=== PATIENT | male | born 1940 | race Caucasian/White ===

== ENCOUNTER 2024-12-05 11:48 | Day surgery (SDC) | payer MEDICARE, OTHER ==
[~2024-12-05] VITALS: Ht 172.7 cm; Wt 79.4 kg
[~2024-12-05 11:48] MED LIST: B-1100TA2 PO; DILT180C95 PO; LISI20TA33 PO; LR 1,000 ML IV SCH; PRAV40TA85 PO; PRES1CHW PO; VITA500C24 PO; XARE20TA PO
[2024-12-05] MEDS: CYCLOPENTOLATE 1% OPHTH SOLN 2 ML BTL OD SCH (12:54)
[2024-12-05] MEDS: TETRACAINE 0.5% OPHTH SOLN 4ML OD SCH (12:55)
[2024-12-05] MEDS: FLURBIPROFEN 0.03% OPHTH SOLN 2.5 ML OD SCH (12:55)
[2024-12-05] MEDS: PHENYLEPHRINE 2.5% OPHTH SOL 2ML OD SCH (12:55)
[2024-12-05] MEDS: CEFUROXIME 1 MG/0.1 ML INTRACAMERAL INJ As Ordered ONE (14:10)
[2024-12-05] MEDS: LIDOCAINE 1% SDV 5 ML VIAL As Ordered ONE (14:10)
[2024-12-05 14:28] VITALS: BP 174/85; TEMP 97.1; O2SAT 97
== END 2024-12-05 14:46 | disposition home or self-care (01) ==
LOC: M SDC 11:48
PROVIDERS: ATTEND Ophthalmology
DX: H25.11 Age-related nuclear cataract, right eye (principal); I48.91 Unspecified atrial fibrillation; I10 Essential (primary) hypertension; E78.00 Pure hypercholesterolemia, unspecified; Z79.899 Other long term (current) drug therapy; Z79.01 Long term (current) use of anticoagulants
CPT/HCPCS: 66984; J0697; J3010; V2632

== ENCOUNTER 2025-02-06 10:13 | Day surgery (SDC) | payer MEDICARE, OTHER ==
[~2025-02-06] VITALS: Ht 170.2 cm; Wt 85.7 kg
[2025-02-06] MEDS: CYCLOPENTOLATE 1% OPHTH SOLN 2 ML BTL OS SCH (13:28)
[2025-02-06] MEDS: FLURBIPROFEN 0.03% OPHTH SOLN 2.5 ML OS SCH (13:28)
[2025-02-06] MEDS: TETRACAINE 0.5% OPHTH SOLN 4ML OS SCH (13:28)
[2025-02-06] MEDS: PHENYLEPHRINE 2.5% OPHTH SOL 2ML OS SCH (13:28)
[2025-02-06] MEDS: CEFUROXIME 1 MG/0.1 ML INTRACAMERAL INJ As Ordered ONE (14:34)
[2025-02-06] MEDS: LIDOCAINE 1% SDV 5 ML VIAL As Ordered ONE (14:34)
[2025-02-06 14:55] VITALS: BP 147/85; TEMP 96.9; O2SAT 98
== END 2025-02-06 15:13 | disposition home or self-care (01) ==
LOC: M SDC 10:13
PROVIDERS: ATTEND Ophthalmology
DX: H25.12 Age-related nuclear cataract, left eye (principal); I48.91 Unspecified atrial fibrillation; I10 Essential (primary) hypertension; E78.00 Pure hypercholesterolemia, unspecified; Z79.01 Long term (current) use of anticoagulants; Z79.899 Other long term (current) drug therapy; Z98.41 Cataract extraction status, right eye
CPT/HCPCS: 66984; J0697; J3010; V2632